=== PATIENT | female | born 1965 ===

== ENCOUNTER 2021-03-04 22:53 | Emergency (ER) | payer SELFPAY ==
[2021-03-04] MEDS ORDERED: EPINEPHrine 1 MG/ML VIAL ONE (22:55)
== END 2021-03-05 | disposition left against medical advice (07) ==
LOC: ERS 22:53
DX: T78.2XXA Anaphylactic shock, unspecified, initial encounter (principal)
CPT/HCPCS: 93005; 96372; J0171